=== PATIENT | female | born 1955 | race Caucasian/White ===

== ENCOUNTER 2017-02-09 13:23 | Emergency (ER) | payer OTHER ==
[~2017-02-09] VITALS: Ht 170.2 cm; Wt 85.0 kg
[2017-02-09 13:25] VITALS: BP 152/63; PULSE 66; RESP 20; TEMP 97.5; O2SAT 96
--- NOTE | 2017-02-09 13:28 | PD ---
Physical Exam Date Seen by Provider: Feb 09, 2017 Time Seen by Provider: 13:26 Data Data Last Documented VS Vital Signs Date Time Temp Pulse Resp B/P Pulse Ox O2 Delivery O2 Flow Rate FiO2 02/09/17 13:25 97.5 66 20 152/63 96 Room Air [facility] Supervised Visit with DAT: No Narrative Course 61 YO F with complaint of ~24 hour history of SOB, wheezing. Endorses cough since Mid January. Endorses CP with she attributes to the cough. Denies fevers. Vitals reviewed. Awaiting bed placement. Bing Gabriel Feb 09, 2017 13:28
--- NOTE | 2017-02-09 13:31 | PD ---
HPI Chief Complaint: Respiratory Symptoms Time Seen by Provider: 13:30 Travel History International Travel<30 days: No Contact w/Intl Traveler<30days: No Traveled to known affect area: No History of Present Illness HPI 61-year-old female presents the emergency department with increasing cough and left rib pain over the past several days. Patient states she's had a cough since mid January. Patient states she recently caught a head cold and sinusitis while visiting [place] the end of December. She continued to have cough since that time despite being treated with amoxicillin by her primary care physician which ended approximately a month ago. Patient states she improved somewhat but then worsened in the last week with 2 days of left rib pain with movement and cough. She denies productive cough, or wheezing, but does feel short of breath. [facility] Social History Alcohol Use: No Tobacco Use: No Substance Use: No Allergies-Medications (Allergen,Severity, Reaction): Coded Allergies: No Known Allergies (Unverified , 02/09/17) Reported Meds & Prescriptions Reported Meds & Active Scripts Active Reported Latanoprost Opth Drops (Latanoprost) 0.005% Drops 1 Drop EACH EYE HS Refrigerate until opened. Losartan (Losartan Potassium) 50 Mg Tab 50 Mg PO DAILY Atenolol 50 Mg Tab 50 Mg PO DAILY Physical Exam Narrative GENERAL: Patient appears mild/moderate distress. SKIN: Warm and dry. Normal color. Normal turgor. No signs of injury. HEAD: Atraumatic. Normocephalic. EYES: Pupils equal and round. No scleral icterus. No injection or drainage. ENT: No nasal bleeding or discharge. Mucous membranes pink and moist. Patient has mild to moderate sinus tenderness in the right maxillary sinus. TMs are clear bilaterally. Pharynx is clear. Airway is patent. NECK: Trachea midline. Supple and nontender. CARDIOVASCULAR: Regular rate and rhythm. RESPIRATORY: No accessory muscle use. Clear to auscultation. Breath sounds equal bilaterally. Patient has point tenderness in the left lower anterior ribs along the T8 9, without obvious deformity or crepitus. GASTROINTESTINAL: Abdomen soft, non-tender, nondistended. Hepatic and splenic margins not palpable. MUSCULOSKELETAL: Extremities without clubbing, cyanosis, or edema. No obvious deformities. NEUROLOGICAL: Awake and alert. No obvious cranial nerve deficits. Motor grossly within normal limits. Five out of 5 muscle strength in the arms and legs. Normal speech. PSYCHIATRIC: Appropriate mood and affect; insight and judgment normal. Data Data Last Documented VS Vital Signs Date Time Temp Pulse Resp B/P Pulse Ox O2 Delivery O2 Flow Rate FiO2 02/09/17 13:46 65 15 100 Nasal Cannula 2 02/09/17 13:25 97.5 152/63 Orders Complete Blood Count With Diff (02/09/17 13:35) Comprehensive Metabolic Panel (02/09/17 13:35) Ckmb (Isoenzyme) Profile (02/09/17 13:35) Troponin I (02/09/17 13:35) Urinalysis - C+S If Indicated (02/09/17 13:35) Iv Access Insert/Monitor (02/09/17 13:35) Electrocardiogram (02/09/17 13:35) Ecg Monitoring (02/09/17 13:35) Oximetry (02/09/17 13:35) Oxygen Administration (02/09/17 13:35) Sodium Chloride 0.9% Flush (Ns Flush) (02/09/17 13:45) Albuterol-Ipratropium Neb (Duoneb Neb) (02/09/17 13:45) Ribs, Uni (W/Exp Cxr-Min 3vw) (02/09/17 13:35) Lactic Acid (02/09/17 13:35) Ketorolac Inj (Toradol Inj) (02/09/17 13:45) Labs Laboratory Tests Test 02/09/17 14:00 White Blood Count 6.3 TH/MM3 Red Blood Count 4.29 MIL/MM3 Hemoglobin 12.2 GM/DL Hematocrit 37.5 % Mean Corpuscular Volume 87.5 FL Mean Corpuscular Hemoglobin 28.4 PG Mean Corpuscular Hemoglobin 32.4 % Concent Red Cell Distribution Width 14.6 % Platelet Count 204 TH/MM3 Mean Platelet Volume 8.2 FL Neutrophils (%) (Auto) 49.3 % Lymphocytes (%) (Auto) 34.6 % Monocytes (%) (Auto) 13.7 % Eosinophils (%) (Auto) 1.7 % Basophils (%) (Auto) 0.7 % Neutrophils # (Auto) 3.1 TH/MM3 Lymphocytes # (Auto) 2.2 TH/MM3 Monocytes # (Auto) 0.9 TH/MM3 Eosinophils # (Auto) 0.1 TH/MM3 Basophils # (Auto) 0.0 TH/MM3 CBC Comment DIFF FINAL Differential Comment Urine Color YELLOW Urine Turbidity CLEAR Urine pH 5.5 Urine Specific [place] 1.024 Urine Protein TRACE mg/dL Urine Glucose (UA) NEG mg/dL Urine Ketones NEG mg/dL Urine Occult Blood NEG Urine Nitrite NEG Urine Bilirubin NEG Urine Urobilinogen LESS THAN 2.0 MG/DL Urine Leukocyte Esterase SMALL Urine RBC 1 /hpf Urine WBC 6 /hpf Urine Squamous Epithelial 2 /hpf Cells Urine Transitional Epithelial 1 /hpf Cells Urine Bacteria RARE /hpf Urine Hyaline Casts 1 /lpf Urine Mucus FEW /lpf Microscopic Urinalysis Comment CULT NOT INDICATED Sodium Level 143 MEQ/L Potassium Level 3.6 MEQ/L Chloride Level 107 MEQ/L Carbon Dioxide Level 30.4 MEQ/L Anion Gap 6 MEQ/L Blood Urea Nitrogen 14 MG/DL Creatinine 0.94 MG/DL Estimat Glomerular Filtration 61 ML/MIN Rate Random Glucose 86 MG/DL Lactic Acid Level 0.9 mmol/L Calcium Level 8.8 MG/DL Total Bilirubin 0.3 MG/DL Aspartate Amino Transf 15 U/L (AST/SGOT) Alanine Aminotransferase 18 U/L (ALT/SGPT) Alkaline Phosphatase 86 U/L Total Creatine Kinase 80 U/L Troponin I LESS THAN 0.02 NG/ML Total Protein 7.8 GM/DL Albumin 3.3 GM/DL [facility] Medical Decision Making Medical Screen Exam Complete: Yes Emergency Medical Condition: Yes Medical Record Reviewed: Yes Differential Diagnosis Rib fracture. Pneumonia. Post nasal drip. Cough. Wheezing. Sinusitis. Pneumothorax. Rib strain. Narrative Course Patient is medically stable at time of exam. Labs ordered including CBC, CMP, cardiac panel and lactic acid and urinalysis. Chest x-ray and rib films are ordered. Patient is given 30 mg Toradol IV as well as duo neb 1. Labs are all within normal limits. Chest x-ray is normal per radiologist. Patient felt improved after the Toradol but no different after DuoNeb 1. Patient is felt to have ongoing postnasal drip from chronic sinusitis, as well as a left rib strain. Patient will be treated with Levaquin 500 mg daily for 10 days. Patient is also used Flonase nasal spray 2 sprays each nostril daily. Patient also given Tessalon Perles 100 mg 1 capsule 3 times a day when necessary cough #30. Patient is also given ibuprofen 600 mg 4 times a day #40. Recommend the patient follow up with her primary care physician or return to emergency Department with worsening symptoms. Diagnosis Primary Impression: Rib pain on left side Additional Impression: Chronic sinusitis with recurrent bronchitis Referrals: Primary Care Physician Patient Instructions: General Instructions, Muscle Strain (ED), Sinusitis (ED) Additional Instructions: Patient is felt to have ongoing postnasal drip from chronic sinusitis, as well as a left rib strain. Patient will be treated with Levaquin 500 mg daily for 10 days. Patient is also used Flonase nasal spray 2 sprays each nostril daily. Patient also given Tessalon Perles 100 mg 1 capsule 3 times a day when necessary cough #30. Patient is also given ibuprofen 600 mg 4 times a day #40. Recommend the patient follow up with her primary care physician or return to emergency Department with worsening symptoms. Med/Other Pt SpecificInfo: Prescription(s) given Scripts Fluticasone Nasal [place] (Flonase Nasal [place])50 Mcg/Act [id number] Mcg EACH NARE DAILY #1 BOTTLE Prov:Isa Chua MD 02/09/17 Benzonatate (Tessalon Perles)100 Mg [id number] Mg PO TID PRN (COUGH) #30 CAP Ref 0 Prov:Isa Chua MD 02/09/17 Ibuprofen 600 Mg [id number] Mg PO Q6H PRN (Pain/Inflammation) #40 TAB Prov:Isa Chua MD 02/09/17 Levofloxacin (Levaquin)500 Mg Tablet1 Tab PO DAILY #10 Prov:Isa Chua MD 02/09/17 Disposition: 01 DISCHARGE HOME Condition: Stable Chavo Palacio Feb 09, 2017 13:31
[2017-02-09] MEDS ORDERED: KETOROLAC TROMETHAMINE 30 MG/ML (IVP) VIAL IV PUSH ONE (13:45)
[2017-02-09] MEDS ORDERED: SODIUM CHLORIDE 0.9% FLUSH 10 ML FLUSH IVF PRN (13:45)
[2017-02-09] MEDS ORDERED: RESP: ALBUTEROL 2.5 MG/IPRATROPIUM 0.5 MG NEB (SCH) INH ONE (13:45)
[2017-02-09 13:46] VITALS: PULSE 65; RESP 15; O2SAT 100
[2017-02-09] MEDS ORDERED: ATEN50TA PO (13:48)
[2017-02-09] MEDS ORDERED: LATA0.002 EACH EYE (13:48)
[2017-02-09] MEDS ORDERED: LOSA50TA PO (13:48)
--- NOTE | 2017-02-09 14:34 | RADRPT ---
EXAM DATE/TIME: 02/09/2017 14:21 [place] COMPARISON: No previous studies available for comparison. INDICATIONS : Left rib pain, shortness of breath. MEDICAL HISTORY : None. SURGICAL HISTORY : None. ENCOUNTER: Initial ACUITY: 1 day PAIN SCORE: 5/10 LOCATION: Left ribs FINDINGS: Expiratory chest reveals no evidence for a pneumothorax. There is good visualization of the left rib s. There is no evidence for a rib fracture. CONCLUSION: Negative for displaced rib fracture. There is no pneumothorax. Jasiel Chaudhari MD FACR on February 09, 2017 at 14:28 Board Certified Radiologist. This report was verified electronically.
[2017-02-09 14:37] LABS: AUTOMATED NEUTROPHIL # 3.1 TH/MM3 (1.8-7.7); BACTERIA, URINE RARE /hpf; BASOPHIL % 0.7 % (0.0-2.0); BLOOD, URINE NEG (NEG); COMMENT (UR) CULT NOT INDICATED; CULTURE IF INDICATED CULT NOT INDICATED; EOSINOPHIL # 0.1 TH/MM3 (0-0.4); EOSINOPHIL % 1.7 % (0.0-4.0); GLUCOSE,URINE NEG (NEG); HEMATOCRIT 37.5 % (35.0-46.0); HEMO FLAGS DIFF FINAL; HYALINE CAST, URINE 1 /lpf (RARE); KETONE, URINE NEG (NEG); LYMPH % 34.6 % (9.0-44.0); LYMPHOCYTE # 2.2 TH/MM3 (1.0-4.8); MEAN CELL VOLUME 87.5 FL (80.0-100.0); MEAN CORPUSCULAR HEMOGLOBIN 28.4 PG (27.0-34.0); MEAN CORPUSCULAR HGB CONC 32.4 % (32.0-36.0); MONO % 13.7 % (0.0-8.0); MUCUS URINE FEW /lpf (OCC); NEUT % 49.3 % (16.0-70.0); NITRITE,URINE NEG (NEG); PH, URINE 5.5 (5.0-8.5); PLATELET COUNT 204 TH/MM3 (150-450); RED BLOOD COUNT 4.29 MIL/MM3 (4.00-5.30); RED CELL DISTRIBUTION WIDTH 14.6 % (11.6-17.2); SQUAMOUS EPITHELIAL CELL URINE 2 /hpf (0-5); TRANSITIONAL EPI CELLS, URINE 1 /hpf; URINE COLOR YELLOW (YELLW/STRAW); WHITE BLOOD COUNT 6.3 TH/MM3 (4.0-11.0)
[2017-02-09 14:52] LABS: ANION GAP 6 MEQ/L (5-15); AST (GOT) 15 U/L (15-37); BICARBONATE 30.4 MEQ/L (21.0-32.0); BLOOD UREA NITROGEN 14 MG/DL (7-18); CHLORIDE 107 MEQ/L (98-107); GLOMERULAR FILTRATION RATE 61 ML/MIN (>89); POTASSIUM 3.6 MEQ/L (3.5-5.1); SODIUM (NA) 143 MEQ/L (136-145)
[2017-02-09 14:57] LABS: ALKALINE PHOSPHATASE 86 U/L (45-117); ALT (GPT) 18 U/L (10-53); TOTAL BILIRUBIN ADULT 0.3 MG/DL (0.2-1.0)
[2017-02-09 15:00] VITALS: O2SAT 98
[2017-02-09 15:03] LABS: CREATINE KINASE 80 U/L (26-192)
[2017-02-09] MEDS ORDERED: BENZ100 PO (15:27)
[2017-02-09] MEDS ORDERED: FLUT1SPR5 EACH NARE (15:27)
[2017-02-09] MEDS ORDERED: LEVA500T20 PO (15:27)
[2017-02-09] MEDS ORDERED: IBUP-232 PO (15:27)
== END 2017-02-09 16:05 | disposition home or self-care (01) ==
LOC: NEPE 13:23
DX: R07.81 Pleurodynia (principal); J32.9 Chronic sinusitis, unspecified; J40 Bronchitis, not specified as acute or chronic
CPT/HCPCS: 71101; 80053; 81001; 82550; 83605; 84484; 85025; 94664; 96374; 99285; J1885